=== PATIENT | female | born 2000 | race American Indian/Alaskan Native ===

== ENCOUNTER 2020-08-16 13:36 | Emergency (ER) | payer SELFPAY ==
[2020-08-16 14:24] VITALS: BP 138/88
--- NOTE | 2020-08-16 15:31 | Emergency Department Report ---
ED Extremity Problem HPI - General Chief complaint: Extremity Injury, Lower Stated complaint: RT ANKLE PAIN Time Seen by Provider: 08/16/20 15:27 Source: patient Mode of arrival: Ambulatory Limitations: No Limitations - History of Present Illness Initial comments: This pleasant 20-year-old female presents the emergency department chief complaint of right foot and ankle pain with occasional swelling over the past many months. Patient reports she stands for long periods of time at her job e.g. after she stands she will have the pain. She denies any injuries. She denies any known past medical history, current medication use or known allergies medications. She denies any associated fever, chills, night sweats, headache, dizziness, blurry vision, nausea, vomiting, diarrhea, chest pain, shortness of breath. Her pain is located to the anterior ankle and medial ankle. Describes it as 6 out of 10 describes dull and achy. She denies any calf pain or swelling. - Related Data Previous Rx's Medication Instructions Recorded Last Taken Type Naproxen 500 mg PO BID #20 tablet 08/16/20 Unknown Rx Allergies Allergy/AdvReac Type Severity Reaction Status Date / Time No Known Allergies Allergy Unverified 08/16/20 14:21 ED Review of Systems ROS: Stated complaint: RT ANKLE PAIN Other details as noted in HPI Comment: All other systems reviewed and negative Constitutional: denies: chills, fever Eyes: denies: eye pain, eye discharge, vision change ENT: denies: ear pain, throat pain Respiratory: denies: cough, shortness of breath, wheezing Cardiovascular: denies: chest pain, palpitations Endocrine: no symptoms reported Gastrointestinal: denies: abdominal pain, nausea, diarrhea Genitourinary: denies: urgency, dysuria, discharge Musculoskeletal: as per HPI, arthralgia. denies: back pain, joint swelling Skin: denies: rash, lesions Neurological: denies: headache, weakness, paresthesias Psychiatric: denies: anxiety, depression Hematological/Lymphatic: denies: easy bleeding, easy bruising ED Past Medical Hx - Past Medical History Previous Medical History?: No - Surgical History Past Surgical History?: No - Medications Home Medications: Home Medications Medication Instructions Recorded Confirmed Last Taken Type Naproxen 500 mg PO BID #20 tablet 08/16/20 Unknown Rx ED Physical Exam - General Limitations: No Limitations General appearance: alert, in no apparent distress - Head Head exam: Present: atraumatic, normocephalic - Eye Eye exam: Present: normal appearance, PERRL, EOMI Pupils: Present: normal accommodation - ENT ENT exam: Present: normal exam, normal orophraynx, mucous membranes moist - Neck Neck exam: Present: normal inspection, full ROM. Absent: tenderness, meningismus - Respiratory Respiratory exam: Present: normal lung sounds bilaterally. Absent: respiratory distress, wheezes, rales, rhonchi, stridor - Cardiovascular Cardiovascular Exam: Present: regular rate, normal rhythm, normal heart sounds. Absent: systolic murmur, diastolic murmur, rubs, gallop - GI/Abdominal GI/Abdominal exam: Present: soft, normal bowel sounds - Extremities Exam Extremities exam: Present: normal inspection, full ROM, tenderness (Mild tenderness to the medial ankle, no medial or lateral malleoli tender, no tenderness at the base fifth metatarsal, able to ambulate without pain. Normal DP and PT pulses. Normal distal sensation and capillary refill. There is significant pes planus of the right foot. No posterior calf tenderness, negative Homans' sign bilaterally.) - Back Exam Back exam: Present: normal inspection, full ROM. Absent: tenderness, CVA tenderness (R), CVA tenderness (L) - Neurological Exam Neurological exam: Present: alert, oriented X3, normal gait - Psychiatric Psychiatric exam: Present: normal affect, normal mood - Skin Skin exam: Present: warm, dry, intact, normal color. Absent: rash ED Course Vital Signs 08/16/20 14:24 Temperature 98.8 F Pulse Rate 115 H Respiratory 18 Rate Blood Pressure 138/88 [Right] O2 Sat by Pulse 98 Oximetry ED Medical Decision Making - Medical Decision Making Patient's exam is consistent with pes planus. She had a negative Homans' sign is a low risk by Wells criteria for DVT. I suspect the symptoms are secondary to her pes planus and fallen arch and recommended arch support, anti- inflammatories and leg strengthening exercises. Recommended outpatient podiatry follow-up and return to emerge department any change or worsening symptoms. She verbalized understanding the diagnosis, treatment plan and follow-up instructions and all of her questions were answered. - Differential Diagnosis strain, sprain, pes planus Critical care attestation.: If time is entered above; I have spent that time in minutes in the direct care of this critically ill patient, excluding procedure time. ED Disposition Clinical Impression: Pes planus of right foot Disposition: DC-01 TO HOME OR SELFCARE Is pt being admited?: No Condition: Stable Instructions: Flat Feet, Adult Prescriptions: Naproxen 500 mg PO BID #20 tablet Referrals: ROWENA LEON DPM [Staff Physician] - 3-5 Days Forms: Work/School Release Form(ED) Time of Disposition: 15:30
== END 2020-08-16 15:56 | disposition home or self-care (01) ==
LOC: ED 13:36
DX: M72.2 Plantar fascial fibromatosis (principal)
CPT/HCPCS: 99282